=== PATIENT | female | born 1965 | race African-American/Black ===

== ENCOUNTER 2016-03-27 11:12 | Emergency (ER) | payer OTHER, MEDICARE ==
[~2016-03-27] VITALS: Ht 170.2 cm; Wt 93.0 kg
--- NOTE | 2016-03-27 13:00 | ED GI/GU/ABDOMINAL COMPLAINT ---
History of Present Illness General Chief Complaint: Abdominal Pain/Flank Pain Stated Complaint: PT STATES"I NEED A CHECK UP DOWN THERE ?PREG" Source: patient Exam Limitations: no limitations Vital Signs & Intake/Output Vital Signs & Intake/Output Vital Signs Date Time Temp Pulse Resp B/P Pulse O2 O2 Flow FiO2 Ox Delivery Rate 03/27 1508 97.0 62 16 128/70 97 Room Air 03/27 1341 98.1 56 18 136/91 97 Room Air 03/27 1124 97.6 79 18 135/88 98 Room Air Allergies Coded Allergies: No Known Allergies (03/27/16) Reconcile Medications No Known Home Medications Triage Note: C/O LOWER ABDOMINAL PAIN WITH BLOATING. X 1 YEAR, PAIN WORSE WITH EATING. LMP: ? 07/14. HAD SOME SPOTTING 08/14, AND 03/17. WANTS TO BE CHECKED FOR , FEELING "FLUTTERING" IN ABDOMEN. Triage Nurses Notes Reviewed? yes ? N Is pt currently ? No Onset: Gradual Duration: 1 YEAR Timing: recent history Quality/Severity: cramping Severity Numbers: 6 Location: generalized abdomen Radiation: no radiation Activities at Onset: none Prior Abdominal Problems: similar symptoms Past Sexual History: Unobtainable at this time Sexually Active: Yes Last Time You Were Sexual: less than 2 months ago Sexual Orientation: Heterosexual Use of Protection: No No Modifying Factors: none HPI: Patient is a 50-year-old female presenting to the emergency department with question of "I need to check if I'm ". Patient reports that she's had this abdominal pain on and off for about one year. Its crampy in nature. Diffuse. Nonfocal. Pain currently moderate. Worse over the past couple days. Also reports intermittent clear vaginal discharge. Denies any dysuria urgency or frequency. No back pain. Denies fevers or chills. She is unsure the last time she saw an HIM CLERK. She is sexually active, does not use protection. History of BV and reports this feels similar. Patient reports that she's had intermittent spotting over the past several months. She'll get her period lately and then will get up for several months. Has not seen an OB in several years. Past History Travel History Traveled to [place] past 21 day No Medical History Any Pertinent Medical History? see below for history History of CDIFF: No Surgical History Surgical History: non-contributory Psychosocial History What is your primary language Jamaican Tobacco Use: Current Daily Use Daily Tobacco Use Amount/Type: =< 4 Cigarettes daily ETOH Use: denies use Family History Hx Contributory? No Review of Systems Review of Systems Constitutional: Reports: no symptoms. Comments Review of systems: See HPI, All other systems negative. Constitutional, no chills fever or weight loss HEENT: No visual changes no sore throat no congestion Cardiovascular: No chest pain ,palpitation Skin, no jaundice no rashes Respiratory: No dyspnea cough sputum or hemoptysis GI: No nausea no vomiting : No dysuria No hematuria Muscle skeletal: no back pain, no neck pain, Neurologic: No numbness no confusion Psych: No stress anxiety Immunology: No splenectomy or history of AIDS Physical Exam Physical Exam General Appearance: well developed/nourished, no apparent distress, alert, awake , comfortable Gastrointestinal: normal bowel sounds, soft, tenderness Comments: Well-developed well-nourished person in no acute distress HEENT: Pupils equally round and reactive to light and accommodation. Nose is atraumatic. Neck: Normal inspection Back: Nontender, no CVA tenderness. Cardiovascular: Regular rate and rhythms no murmurs rubs or gallops, normal JVP Respiratory: Chest nontender. No respiratory distress.breath sounds clear to auscultation bilaterally Abdomen: Soft, tender to palpation in all lower quadrants bilaterally, no rebound or guarding, nondistended, no appreciable organomegaly. Normal bowel sounds. No ascites Pelvic: No cervical motion tenderness, no lesions noted on the cervix, no discharge in the vaginal canal. Extremity: No edema, Neuro: Alert oriented x3 Skin: No appreciable rash on exposed skin, skin is warm and dry. Psych: Mood and affect is normal, memory and judgment is normal. Core Measures ACS in differential dx? No Severe Sepsis Present: No Septic Shock Present: No Progress Differential Diagnosis: std, uti, , DIVERTICULITIS, DIVERTICULOSIS, MENOPAUSE Plan of Care: Orders Procedure Date/time Status CULTURE,URINE 03/27 1259 Active TRICHOMONAS 03/27 1259 Complete POTASSIUM HYDROXIDE (CULLEN) 03/27 1259 Complete GENITAL CULTURE 03/27 1259 Active CHLAMYDIA-GC DNA PROBE 03/27 1259 Active COMPREHENSIVE METABOLIC PANEL 03/27 1259 Complete CBC WITHOUT DIFFERENTIAL 03/27 1259 Complete URINE 03/27 1127 Complete URINALYSIS 03/27 1127 Complete Laboratory Tests 03/27/16 1308: Anion Gap 10, Estimated GFR > 60, BUN/Creatinine Ratio 20.0, Glucose 101 H, Calcium 9.7, Total Bilirubin 0.5, AST 21, ALT 28, Alkaline Phosphatase 59, Total Protein 7.4, Albumin 4.1, Globulin 3.3, Albumin/Globulin Ratio 1.2, CBC w Diff NO MAN DIFF REQ, RBC 4.21, MCV 90.0, MCH 30.6, RDW 12.4, MPV 7.9, Gran % 55.4, Lymphocytes % 35.3, Monocytes % 8.3, Eosinophils % 0.6, Basophils % 0.4, Absolute Granulocytes 3.3, Absolute Lymphocytes 2.1, Absolute Monocytes 0.5, Absolute Eosinophils 0, Absolute Basophils 0, PUBS MCHC 34.0 03/27/16 1202: Urine Color YEL, Urine Clarity CLEAR, Urine pH 6.0, Ur Specific [place] >= 1.030 , Urine Protein NEG, Urine Ketones NEG, Urine Nitrite NEG, Urine Bilirubin NEG, Urine Urobilinogen 0.2, Ur Leukocyte Esterase NEG, Ur Microscopic EXAM NOT REQUIRED, Urine Hemoglobin NEG, Urine Glucose NEG, Urine Test NEGATIVE Microbiology 03/27 1415 GENITAL: GC DNA Probe - RECD 03/27 141 GENITAL: Chlamydia DNA Probe (CHARLINE) - RECD 03/27 141 GENITAL: CULLEN Preparation - COMP 03/27 1415 GENITAL: Trichomonas Preparation - COMP 03/27 141 GENITAL: Genital Culture - RECD 03/27 1259 URINE ROUT: Urine Culture - ORD Diagnostic Imaging: Viewed by Me: CT Scan. Discussed w/RAD: CT Scan. Radiology Impression: PATIENT: DUNG SOMERS PRESENT AGE: 50 PATIENT ACCOUNT NO: [id number] : 64 LOCATION: [facility] ORDERING PHYSICIAN: MAURI DE LA ROSA SERVICE DATE: 03/27/16130 EXAM TYPE: CAT - CT ABD & PELVIS W IV CONTRAST EXAMINATION: CT ABDOMEN AND PELVIS WITH CONTRAST CLINICAL INFORMATION: Abdominal pain, lower quadrants COMPARISON: None. TECHNIQUE: Multidetector volumetric imaging was performed of the abdomen and pelvis before and after the IV administration of 95 mL of Optiray 320 intravenous contrast. Sagittal and coronal reformatted images were obtained on the technologist's workstation. DLP: 612.42 mGy-cm. FINDINGS: LUNG BASES: The visualized lung bases are unremarkable. LIVER, GALLBLADDER, AND BILIARY TREE: The liver is normal in size, shape, and attenuation. No focal hepatic lesion or biliary ductal dilatation is present. The gallbladder is unremarkable with no evidence of radiopaque gallstones, gallbladder wall thickening, or obvious pericholecystic inflammatory changes. PANCREAS: Unremarkable. SPLEEN: Unremarkable. ADRENAL GLANDS: Unremarkable. KIDNEYS AND URETERS: The kidneys are normal in size, shape, and attenuation. No hydronephrosis, hydroureter, or calculi seen. No perinephric stranding. BLADDER: Mildly distended with diffuse mural prominence. GASTROINTESTINAL TRACT: The small and large bowel are unremarkable. The appendix is unremarkable. No free fluid or free air is seen. ABDOMINAL WALL: No significant hernia is appreciated. LYMPH NODES: Normal. VASCULAR: Unremarkable. PELVIC VISCERA: Unremarkable. OSSEOUS STRUCTURES: Scattered degenerative changes are present in the spine, most severe at L4-L5 with disc space narrowing, vacuum disc phenomenon, and endplate osteophyte formation. IMPRESSION: Mildly distended urinary bladder demonstrates diffuse mural prominence, which could be due to underdistention or potentially cystitis. No additional acute findings identified. Initial ED EKG: none Comments: On arrival patient declined anything for pain. Patient was informed of all imaging study in lab work results. No indication on exam the patient has STD. Still pending GC and chlamydia culture. Negative CULLEN and track. We will follow culture results and call patient if they're positive. She will so follow-up with her HIM CLERK. All lab work results. No elevation in white blood cell count. Patient is afebrile. Etiology of abdominal pain is unclear at this time. CT scan is negative for any acute pathology. Departure Departure Time of Disposition: 1513 Disposition: HOME OR SELF CARE Condition: Stable Clinical Impression Primary Impression: Abdominal pain Qualifiers: Abdominal location: generalized Qualified Code: R10.84 - Generalized abdominal pain Referrals: PATIENT HAS NO PRIMARY CARE DR (PCP/Family) Additional Instructions: Follow-up with your HIM CLERK in your primary care physician call to make an appointment. Increase fluids. Return for worsening symptoms or concerns. Take [id number] Motrin or Tylenol as directed for pain. Departure Forms: Customer Survey General Discharge Information Prescriptions: Current Visit Scripts No Known Home Medications
[2016-03-27 13:27] LABS: ABSOLUTE BASOPHIL COUNT 0 /CUMM (0.0-0.2); ABSOLUTE EOSINOPHIL COUNT 0 /CUMM (0.0-0.7); ABSOLUTE GRANULOCYTE CT 3.3 /CUMM (1.4-6.5); ABSOLUTE LYMPH COUNT 2.1 /CUMM (1.2-3.4); ABSOLUTE MONOCYTE COUNT 0.5 /CUMM (0.10-0.60); BASOPHIL % 0.4 % (0.0-2.0); EOSINOPHIL % 0.6 % (0-5); GRANULOCYTE % 55.4 % (42.2-75.2); HEMATOCRIT 37.9 % (37-47); MEAN CORPUSCULAR HGB 30.6 PG (27.0-31.0); MEAN PLATELET VOLUME 7.9 FL (7.4-10.4); PLATELET COUNT 214 /CUMM (130-400); RBC DISTRIBUTION WIDTH 12.4 % (11.5-14.5); RED BLOOD CELL CT 4.21 /CUMM (4.20-5.40)
--- NOTE | 2016-03-27 14:33 | CT SCAN REPORT ---
EXAMINATION: CT ABDOMEN AND PELVIS WITH CONTRAST CLINICAL INFORMATION: Abdominal pain, lower quadrants COMPARISON: None. TECHNIQUE: Multidetector volumetric imaging was performed of the abdomen and pelvis before and after the IV administration of 95 mL of Optiray 320 intravenous contrast. Sagittal and coronal reformatted images were obtained on the technologist's workstation. DLP: 612.42 mGy-cm. FINDINGS: LUNG BASES: The visualized lung bases are unremarkable. LIVER, GALLBLADDER, AND BILIARY TREE: The liver is normal in size, shape, and attenuation. No focal hepatic lesion or biliary ductal dilatation is present. The gallbladder is unremarkable with no evidence of radiopaque gallstones, gallbladder wall thickening, or obvious pericholecystic inflammatory changes. PANCREAS: Unremarkable. SPLEEN: Unremarkable. ADRENAL GLANDS: Unremarkable. KIDNEYS AND URETERS: The kidneys are normal in size, shape, and attenuation. No hydronephrosis, hydroureter, or calculi seen. No perinephric stranding. BLADDER: Mildly distended with diffuse mural prominence. GASTROINTESTINAL TRACT: The small and large bowel are unremarkable. The appendix is unremarkable. No free fluid or free air is seen. ABDOMINAL WALL: No significant hernia is appreciated. LYMPH NODES: Normal. VASCULAR: Unremarkable. PELVIC VISCERA: Unremarkable. OSSEOUS STRUCTURES: Scattered degenerative changes are present in the spine, most severe at L4-L5 with disc space narrowing, vacuum disc phenomenon, and endplate osteophyte formation. IMPRESSION: Mildly distended urinary bladder demonstrates diffuse mural prominence, which could be due to underdistention or potentially cystitis. No additional acute findings identified.
[2016-03-27 15:08] VITALS: BP 128/70
== END 2016-03-27 15:17 ==
LOC: ERH 11:12
PROVIDERS: Physician Assistant
DX: R10.84 Generalized abdominal pain (principal); N89.8 Other specified noninflammatory disorders of vagina
CPT/HCPCS: 87070; 74177; 81003; 81025; 87086; 87147; 87491; 87591